=== PATIENT | female | born 1965 | race African-American/Black ===

== ENCOUNTER 2017-10-23 18:37 | Emergency (ER) | payer BC ==
[2017-10-23] MEDS ORDERED: HYDROMORPHONE HCL 1MG/ML **SYRINGE IVP ONE ×2 (18:40→19:36)
--- NOTE | 2017-10-23 18:46 | Emergency Department Record ---
History of Present Illness - General Stated Complaint: NECK/BACK PAIN Time Seen by Provider: 10/23/17 18:39 Source: Patient Mode of Arrival: Ambulatory Limitations: No limitations - History of Present Illness Initial Comments: 52 yo female presents with severe back pain that radiates down the leg on the right. She reports she had back surgery at [facility] [place] about one month ago. The pain has been uncontrolled. The patient's pain has increased tonight. She was unable to stand or walk. She states she has numbness and tingling. No changes in bowel or bladder control. PCP is Rick Krishnamurthy. Surgeon is Natalya. Today the pain intensified while laying down. She reports the right leg did not hurt prior to surgery. She did have an appointment with her surgeon this last Saturday. She states they discussed the symptoms and planned to refer her to a "nerve" specialist. She has an appointment November 15. No urinary incontinence. EMS provided Morphine and Zofran prior to arrival. MD Complaint: Back pain -: Week(s) Place: Home Severity: Severe Quality: Aching, Burning, Sharp, Stabbing Consistency: Constant Improves With: None Worsens With: Movement Context: Other (Recent surgery) Associated Symptoms: Other (weakness, numbness and tingling) Treatments Prior to Arrival: Prescription analgesics, Other - Related Data Home Medications Medication Instructions Recorded Confirmed Last Taken Gabapentin [Neurontin] 400 mg PO BID 10/23/17 10/23/17 Unknown Oxycodone HCl/Acetaminophen 1 tab PO Q4H PRN 10/23/17 10/23/17 Unknown [Oxycodone/Acetaminophen 5mg/325mg] Allergies Allergy/AdvReac Type Severity Reaction Status Date / Time No Known Drug Allergies Allergy Verified 10/23/17 18:50 Review of Systems Constitutional: Denies: Chills, Fever, Malaise, Weakness Eyes: Denies: Eye discharge ENT: Denies: Congestion Respiratory: Denies: Cough, Dyspnea, Hemoptysis, Wheezes Cardiovascular: Denies: Chest pain, Palpitations, Syncope Endocrine: Denies: Fatigue Gastrointestinal: Denies: Abdominal pain, Diarrhea, Nausea, Vomiting Genitourinary: Denies: Dysuria, Urgency Musculoskeletal: Reports: As per HPI, Arthralgia, Back pain Skin: Denies: Bruising, Change in color, Rash Neurological: Reports: Numbness, Weakness. Denies: Headache Psychiatric: Denies: Anxiety Hematological/Lymphatic: Denies: Blood Clots, Easy bleeding, Easy bruising, Swollen glands Past Medical History - SOCIAL HISTORY Smoking Status: Current some day smoker - RESPIRATORY Hx Respiratory Disorders: No - CARDIOVASCULAR Hx Hypertension: Yes - NEURO Hx Neuro Disorders: No - GI Hx GI Disorders: Yes Hx Abdominal Pain: Yes Hx Diverticulitis: Yes Hx Reflux: Yes - Hx Genitourinary Disorders: No - ENDOCRINE Hx Endocrine Disorders: No - MUSCULOSKELETAL Hx Musculoskeletal Disorders: No - PSYCH Hx Psych Problems: No - HEMATOLOGY/ONCOLOGY Hx Hematology/Oncology Disorders: No Family Medical History Hx HTN: Grandparents Physical Exam - General General Appearance: Alert, Oriented x3, Cooperative, No acute distress, Anxious Limitations: No limitations - Head Head exam: Atraumatic, Normocephalic, Normal inspection - Eye Eye exam: Normal appearance. negative: Conjunctival injection, Scleral icterus - ENT ENT exam: Normal exam, Mucous membranes moist Ear exam: Normal external inspection Nasal Exam: Normal inspection Mouth exam: Normal external inspection - Respiratory Respiratory exam: Normal lung sounds bilaterally. negative: Respiratory distress - Cardiovascular Cardiovascular Exam: Regular rate, Normal rhythm, Normal heart sounds - GI/Abdominal GI/Abdominal exam: Soft. negative: Tenderness - Rectal Rectal exam: Deferred - exam: Deferred - Extremities Extremities exam: Normal inspection. negative: Full ROM - Back Back exam: Reports: Normal inspection (well healed scar), Muscle spasm, Paraspinal tenderness, Tenderness, Vertebral tenderness Image of Body Front/Back: 1 - tender low back, well healed scar - Neurological Neurological exam: Alert, Oriented X3, Other (Unable to sit up due to pain, foot flexion and extension intact, sensation is intact). negative: Altered, Motor sensory deficit, Normal gait - Psychiatric Psychiatric exam: Anxious - Skin Skin exam: Dry, Intact, Normal color, Warm. negative: Erythema Course - Reevaluation(s) Reevaluation #1: Will try to obtain records from [facility] Request made The patient was seen and examined No hard neuro deficits at this time. No weakness. No motor loss at this time She has had morphine and dilaudid 10/23/17 18:48 10/23/17 19:19 Bang Hoang her surgeon. She had a decompression for spinal stenosis. Her follow up has been uncomplicated. He was aware of the pain in the legs. He is attempting outpatient modalities for pain control. 10/23/17 19:23 10/23/17 19:25 The patient reports no improvement is pain level at this time after valium, morphine and dilaudid Ofirmev and Toradol ordered 10/23/17 19:29 10/23/17 19:32 The operative reports from 09/10 and 09/13 were reviewed. 10/23/17 19:44 The patient is finally developing some pain control but the pain is severe The labs were reviewed. No acute changes in the CBC, BMP or CRP. She request transfer to [facility] [place] for further evaluation and treatment where her surgery was performed Bang Oneill of the ER. He accepts the patient for transfer and evaluation 10/23/17 19:48 10/23/17 20:10 EMS transport called. Medical Decision Making - Lab Data Result diagrams: 10/23/17 19:05 10/23/17 19:05 Disposition Disposition: Transfer Clinical Impression: Intractable back pain Sciatica Qualifiers: Laterality: right Qualified Code(s): M54.31 - Sciatica, right side Disposition: Acute Care Hospital Transfer Transfer To: [facility] [place] Reason For Transfer: sciata, recent surgery Accepting Physician: Mai Time Discussed w/Accepting Physician: 19:45 Condition: (2) Stable Time of Disposition: 19:56 Quality - Quality Measures Quality Measures: N/A - Blood Pressure Screening Does Patient Have Any of the Following: No Blood Pressure Classification: Hypertensive Reading Systolic Measurement: 133 Diastolic Measurement: 93 Screening for High Blood Pressure: < Pre-Hypertensive BP, F/U Documented > [ [id number]] Pre-Hypertensive Follow-up Interventions: Referral to alternative/primary care provider.
[2017-10-23] MEDS ORDERED: DIAZEPAM 5 MG/1 ML TUBX IVP ONE (19:05)
[2017-10-23 19:13] LABS: BASO % 0.2 % (0-6); GRAN % 62.2 % (47-80); HEMATOCRIT 33.6 % (35.0-47.0); HEMOGLOBIN 10.6 gm/dl (11.6-16.0); LYMPH % 29.2 % (16-45); MEAN CELL VOLUME 83.8 fl (81-97); MEAN CORPUSCULAR HEMOGLOBIN 26.4 pg (27-33); MEAN CORPUSCULAR HGB CONC 31.5 g/dl (32-36); MEAN PLATELET VOLUME 10.1 fl (7.4-10.4); MONO % 7.4 % (0-9); PLATELET COUNT 296 K/uL (130-400); RED BLOOD COUNT 4.01 M/uL (3.80-5.40); RED CELL DISTRIBUTION WIDTH 14.9 % (11.5-14.5)
[2017-10-23 19:24] LABS: BLOOD UREA NITROGEN 9 mg/dL (6-20); CREATININE 0.6 mg/dL (0.5-0.9); EST GLOMERULAR FILTRATION RATE > 60 mL/min
[2017-10-23] MEDS ORDERED: KETOROLAC 30 MG/ML VIAL IVP ONE (19:26)
[2017-10-23] MEDS ORDERED: ACETAMINOPHEN 1,000 MG/100 ML BTL IVPB ONE (19:26)
[2017-10-23 19:27] LABS: GLUCOSE,RANDOM 93 mg/dL (74-109)
[2017-10-23 19:30] LABS: C-REACTIVE PROTEIN 0.28 mg/dL (<0.5)
== END 2017-10-23 20:30 | disposition short-term general hospital (02) ==
LOC: ER 18:37
DX: M54.31 Sciatica, right side (principal); R20.0 Anesthesia of skin; M79.604 Pain in right leg; I10 Essential (primary) hypertension; F17.210 Nicotine dependence, cigarettes, uncomplicated; Z98.890 Other specified postprocedural states
CPT/HCPCS: 99285 ×2; 96376; 96374; 96375; 85025; 86140; 80048; J1885; J1170; J3360